=== PATIENT | female | born 1985 | race African-American/Black ===

== ENCOUNTER 2018-10-01 07:42 | Inpatient (IN) | payer BC ==
[2018-10-01] MEDS ORDERED: CITRIC ACID/SODIUM CITRATE 30 ML UNIT-DOSE CUP PO ONE (08:30)
[2018-10-01] MEDS ORDERED: ELECTROLYTE-148 SOLN 1,000 ML IV ONE (08:30)
[2018-10-01 08:32] VITALS: BMI 33.6
[2018-10-01] MEDS ORDERED: ELECTROLYTE-148 SOLN 1,000 ML IV SCH ×2 (08:45→09:00)
[2018-10-01] MEDS ORDERED: morphine SULFATE/Preservative Free 0.5 MG/ML (1cc Syringe) ONE (09:03)
[2018-10-01] MEDS ORDERED: BUPIVACAINE 0.75% IN DEXTROSE/PF 2ML AMPULE NR ONE (09:06)
--- NOTE | 2018-10-01 09:11 | HP ---
Past Medical History - Primary Care Physician PCP:: Cristhian Young - Admission Chief Complaint: 33yo P1 with at EGA 39w 1d admitted for repeat C/S. History of Present Illness: complicated by prior C/S. 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: Alzheimer's, CVA, Dementia, Migraine, Multiple Sclerosis, Peripheral Neuropathy, Parkinson's, Seizure, Syncope, TIA, Vertigo, Other Cardiovascular: No: AFIB, Aneurysm, Aortic Insufficiency, Aortic Stenosis, CAD, CHF, Deep Vein Thrombosis, HTN, Hyperlipdemia, VT, Mitral Insufficiency, Mitral Stenosis, Murmur, Pulmonary Hypertension, Other Pulmonary: No: Asthma, Bronchitis, Cancer, COPD, O2 Dependent, Pneumonia, Previously Intubated, Pulmonary Embolus, Pulmonary Fibrosis, Sleep Apnea, Other Gastrointestinal: No: Ascites, Cancer, Constipation, Crohn's Disease, Diverticulitis, Diverticulosis, Esophageal Varices, Gastritis, GERD, GI Bleed, Hemorrhoids, Hiatal Hernia, Inflamatory Bowel Disease, Irritable Bowel Disease, Pancreatitis, Peptic Ulcer Disease, Ulcerative Colitis, Other Hepatobiliary: No: Cirrhosis, Cholelithiasis, Cholecystitis, Choledocholithiasis , Hepatitis A, Hepatitis B, Hepatitis C, Other Renal/: No: Renal Failure, Renal Inusuff, BPH, Cancer, Hematuria, Hemodialysis , Neurogenic Bladder, Renal Calculi, UTI, Other Reproductive: No: Ectopic , Endometriosis, Fibroids, PID, Polycystic Ovary Syndrome, Postmenopausal, Other ...: 4 ...Para: 1 ...Term: 0 ...: 0 ...Spon : 2 ...Induced : 0 ...Multiple Gestation: 0 ...LMP: 12/07/17 ... Weeks Gestation by Dates: 39.1 ...EDC by Dates: 09/15/18 ...EDC by Sono: 10/07/18 Heme/Onc: No: Anemia, B12 Deficiency, Bleeding Disorder, Cancer, Current Chemotherapy, Current Radiation Therapy, Hemochromatosis, Hypercoaguable State, Myeloproliferative Synd, Sickle Cell Disease, Sickle Cell Trait, Thrombocytopenia, Other Infectious Disease: No: AIDS, C-Diff, Herpes Zoster, HIV, MRSA, STD's, Tuberculosis, VREF, Other Psych: No: Addictions, Anxiety, Bipolar, Depression, Panic, Psychosis, Schizophrenia, Other Musculoskeletal: No: Bursitis, Chronic low back pain, Hemiparesis, Hemiplegia, Osteoarthritis, Paraplegia, Other Rheumatology: No: Fibromyalgia, Gout, Lupus, Rheumatoid Arthritis, Sarcoidosis, Vasculitis, Other ENT: No: Allergic Rhinitis, Sinusitis, Other Endocrine: No: Rohith's Disease, Wily's Disease, Diabetes Insipidus, Diabetes Mellitus, Hyperparathyroidism, Hyperthyroidism, Hypothyroidism, Osteopenia, SIADH, Other Dermatology: No: Basal Cell, Cellulitis, Eczema, Melanoma, Psoriasis, Squamous Cell, Other - Past Surgical History Past Surgical History: Yes: Hx Myomectomy: No Hx Transabdominal Cerclage: No - Smoking History Smoking history: Never smoked Have you smoked in the past 12 months: No - Alcohol/Substance Use Hx Alcohol Use: No Home Medications - Allergies Allergies/Adverse Reactions: Allergies Allergy/AdvReac Type Severity Reaction Status Date / Time No Known Drug Allergies Allergy Verified 10/01/18 08:23 Family Disease History - Family Disease History Family Disease History: Diabetes: Grandparent (DM, prostate ca), CA: Grandparent Review of Systems - Review of Systems Constitutional: reports: No Symptoms Eyes: reports: No Symptoms HENT: reports: No Symptoms Neck: reports: No Symptoms Cardiovascular: reports: No Symptoms Respiratory: reports: No Symptoms Gastrointestinal: reports: No Symptoms Genitourinary: reports: No Symptoms Breasts: reports: No Symptoms Reported Musculoskeletal: reports: No Symptoms Integumentary: reports: No Symptoms Neurological: reports: No Symptoms Endocrine: reports: No Symptoms Hematology/Lymphatic: reports: No Symptoms Psychiatric: reports: No Symptoms Pain Intensity: 0 Physical Exam - Maternity Vital Signs: Vital Signs Temperature 98.3 F 10/01/18 07:42 Pulse Rate 93 H 10/01/18 07:42 Respiratory Rate 18 10/01/18 07:42 Blood Pressure 129/85 10/01/18 07:42 O2 Sat by Pulse Oximetry (%) Constitutional: Yes: Well Nourished, No Distress, Calm Eyes: Yes: WNL, Conjunctiva Clear HENT: Yes: WNL, Atraumatic, Normocephalic Neck: Yes: WNL, Supple, Trachea Midline Cardiovascular: Yes: WNL, Regular Rate and Rhythm Lungs: Clear to auscultation Breast(s): Yes: WNL - Abdominal Exam/OB Fundal Height: 39 Number of Fetuses: Single Presentation: Vertex Contractions: No Heart Rate (range): 140 Heart Rate Location: Midline Category: I Accelerations: Uniform Decelerations: None - Vaginal Exam/OB Vaginal Bleediing: No Speculum Exam: No Presentation: Vertex/Position - Physical Exam Musculoskeletal: Yes: WNL Extremities: Yes: WNL Edema: Yes Edema: LLE: Trace, RLE: Trace Integumentary: Yes: WNL Deep Tendon Reflex Grade: Normal +2 ...Motor Strength: WNL Psychiatric: Yes: WNL, Alert, Oriented Hemorrhage Risk Assessment - Risk Factors Medium Risk Factors: Yes: Prior , uterine surgery,or multiple laparotomies High Risk Factors: Yes: None Risk Score: 1 Risk Level: Medium Risk Imaging - Results Ultrasound: Report Reviewed Assessment/Plan 33yo P1 with at EGA 39w 1d admitted for repeat C/S. We discussed the risks and benefits of C/S at length, including but not limited to scarring, pain , bleeding, infection, injury to underlying organs and structures, need for additional surgery to repair/treat any problems or complications, complications/injuries, etc. The pt verbalized her understanding and requested to proceed with surgery. The pt is aware that all surgeries have risks and no guarantees can be provided.
[2018-10-01] MEDS ORDERED: ceFAZolin SODIUM 1 GM VIAL ONE (09:14)
[2018-10-01] MEDS ORDERED: PHENYLEPHRINE HCL 10 MG/1 ML SINGLE DOSE VIAL ONE (09:21)
[2018-10-01] MEDS ORDERED: OXYTOCIN 10 UNITS/ML VIAL ONE ×2 (09:33→10:16)
[2018-10-01] MEDS: OXYTOCIN 20 UNITS in 0.9% NS 20 UNIT/1,000 ML INFUS.BAG IV SCH ×3 (09:55→23:45)
[2018-10-01 10:30] LABS: ARTERIAL BLD GAS O2 SATURATION 8.4 % (90-98.9); ARTERIAL BLOOD GAS PCO2 66.3 mmHg (35-45); ARTERIAL BLOOD GAS PO2 11.2 mmHg (80-100); ARTERIAL BLOOD GAS pH 7.18 (7.35-7.45)
[2018-10-01 10:38] LABS: VENOUS PC02 55.1 mmHg (38-52); VENOUS PH 7.25 (7.32-7.42); VENOUS PO2 22.3 mmHg (28-48)
[2018-10-01] MEDS ORDERED: IBUPROFEN 800 MG/8 ML IJ IVPB PRN (10:51)
[2018-10-01] MEDS ORDERED: METHYLERGONOVINE MALEATE 0.2 MG/1 ML AMP IM PRN (10:51)
[2018-10-01] MEDS ORDERED: oxyCODONE HCL 5 MG TABLET PO PRN ×2 (10:51)
[2018-10-01] MEDS ORDERED: IBUPROFEN 800 MG/8 ML IJ IVPB ONE (12:15)
[2018-10-01] MEDS ORDERED: ONDANSETRON 4 MG/2 ML VIAL IVPUSH PRN (18:28)
[2018-10-01] MEDS: FERROUS SO4 325 MG TABLET (FP) PO SCH (21:18)
[2018-10-01] MEDS ORDERED: SENNOSIDES/DOCUSATE COMBO (SENNA PLUS) TABLET (UD) PO PRN (22:00)
[2018-10-02] MEDS: SIMETHICONE 80 MG TAB.CHEW (FP) PO PRN ×3 (06:17→22:19)
[2018-10-02] MEDS: IBUPROFEN 600 MG TABLET (FP) PO PRN ×3 (06:17→22:18)
[2018-10-02] MEDS: ACETAMINOPHEN 325 MG TABLET (FP) PO PRN ×3 (06:18→22:18)
[2018-10-02] MEDS: OXYTOCIN 20 UNITS in 0.9% NS 20 UNIT/1,000 ML INFUS.BAG IV SCH (06:20)
--- NOTE | 2018-10-02 07:04 | PN ---
Post Progress Note - Subjective Subjective: 33yo P2 no complains, no N/V, neg flatus Post Day: 1 Type of Delivery: Repeat C/S Vital Signs: Vital Signs Temperature 98.9 F 10/02/18 06:00 Pulse Rate 96 H 10/02/18 06:00 Respiratory Rate 18 10/02/18 06:00 Blood Pressure 128/83 10/02/18 06:00 O2 Sat by Pulse Oximetry (%) 100 10/01/18 12:00 Breast Exam: Yes: Soft Uterus: Yes: Fundus Firm, Fundus @ umbilicus, Non-tender Incision: Yes: Dressing dry and intact Abdomen/GI: Yes: Abdomen soft, Tolerating PO Lochia: Yes: Rubra Lochia, amount: Small Extremities: Yes: Calves non-tender Perineum: Yes: Intact Activity: Ambulating Assessment/Plan 33yo P 2 now s/p Repeat c/section VSS, Afebrile doing well d/c IV encourage ambulation Insentive Spirometer to bed side Female infant Blood type A pos no need for RhoGam cont routine PP care
[2018-10-02 07:07] LABS: BASO % 0.2 % (0-2.0); EOS % 0.1 % (0-4.5); HEMOGLOBIN 8.1 GM/dL (10.7-15.3); LYMPH % 10.8 % (8-40); MCH 26.7 pg (25.7-33.7); MCHC 32.4 g/dl (32.0-36.0); MEAN CELL VOLUME 82.6 fl (80-96); MEAN PLT VOLUME 8.7 fl (7.5-11.1); MONO % 6.5 % (3.8-10.2); NEUT % 82.4 % (42.8-82.8); PLATELET COUNT 139 K/MM3 (134-434); RBC 3.03 M/mm3 (3.60-5.2); RDW 14.1 % (11.6-15.6); WHITE BLOOD COUNT 9.1 K/mm3 (4.0-10.0)
[2018-10-02] MEDS ORDERED: TUBERCULIN PPD 5 TU/0.1ML SYRINGE (IN PATIENT USE ONLY) ID ONE (09:00)
[2018-10-02] MEDS: ENOXAPARIN NA (PORCINE) 30 MG/0.3 ML DISP.SYRIN SQ SCH (09:33)
[2018-10-02] MEDS: PRENATAL VITAMINS W/ FOLIC ACID TABLET (FP) PO SCH (10:02)
[2018-10-02] MEDS: FERROUS SO4 325 MG TABLET (FP) PO SCH ×2 (10:02→22:19)
[2018-10-02] MEDS ORDERED: BISACODYL 10 MG SUPP.RECT RC PRN (10:51)
--- NOTE | 2018-10-02 10:59 | PN ---
Progress Note (short form) - Note Progress Note: Anesthesia postop note 33 y/o F s/p spinal anesthesia/ duramorph for repeat section POD#1, vss, aaox3, pain well controlled, no complaints, ambulated earlier No anesthesia complications.
--- NOTE | 2018-10-02 20:47 | OP ---
Operative Note - Note: Operative Date: 10/01/18 Pre-Operative Diagnosis: at EGA 39w1d with prior C/S Operation: Repeat LT C/S Findings: 1. Multiple very dense adhesions b/w rectus muscles through fascia and to anterior uterine wall, extending from the low uterine segment to fundus. Absence of any surgical plane due to adhesions. Densely adherent omentum. Post-Operative Diagnosis: Same as Pre-op Surgeon: Cristhian Young Guideman: Oksana Ardon Anesthesiologist/[employer] EXPERIENCE STRATEGY: Adama Phillips Anesthesia: Spinal Specimens Removed: Placenta Estimated Blood Loss (mls): 1,000 Drains & Tubes with Location: Chapman cath Drains, Volume Out (mls): 200 Blood Volume Replaced (mls): 0 Fluid Volume Replaced (mls): 1,100 Operative Report Dictated: Yes
--- NOTE | 2018-10-02 20:48 | PN ---
Delivery - Delivery Section: Repeat, Low Flap Transverse Type of Anesthesia: Spinal Episiotomy/Laceration: None EBL (cc): 1,000 Delivery, Single - Stages of Labor Date of Delivery: 10/01/18 Time of Delivery: 09:54 Date Placenta Delivered: 10/01/18 Time Placenta Delivered: :55 Placenta: Yes: Manual Removal, Normal Configuration - Condition of Ribbon Winder/Bottle Assembler Present: Yes Name: Lili Christensen Gender: Male Weight: 3.345 kg Position: OA, OT Total Hours ROM (Hrs/Mins): 3 MINS - 1 Minute Total Score: 9 5 Minutes Total Score: 9 - Feeding Plan Initial Plan: Elected not to breastfeed exclusively throughout hospitalization Remarks - Remarks Remarks: Very dense adhesions.
[2018-10-03] MEDS: PRENATAL VITAMINS W/ FOLIC ACID TABLET (FP) PO SCH (09:45)
[2018-10-03] MEDS: ENOXAPARIN NA (PORCINE) 30 MG/0.3 ML DISP.SYRIN SQ SCH (09:45)
[2018-10-03] MEDS: FERROUS SO4 325 MG TABLET (FP) PO SCH ×2 (09:45→23:06)
[2018-10-03] MEDS: IBUPROFEN 600 MG TABLET (FP) PO PRN ×2 (11:22→23:07)
[2018-10-03] MEDS: ACETAMINOPHEN 325 MG TABLET (FP) PO PRN ×2 (11:24→23:07)
--- NOTE | 2018-10-03 14:41 | PN ---
Post Progress Note - Subjective Subjective: Patient without acute complaints. Reports tolerating oral intake without nausea or vomiting. Ambulating without dizziness. Denies fevers or chills. Pain well controlled with oral pain medication. Passing flatus, no BM. Post Day: 2 Type of Delivery: Repeat C/S Vital Signs: Vital Signs Temperature 98 F 10/03/18 08:17 Pulse Rate 97 H 10/03/18 08:17 Respiratory Rate 20 10/03/18 08:17 Blood Pressure 129/72 10/03/18 08:17 O2 Sat by Pulse Oximetry (%) 100 10/01/18 12:00 Breast Exam: Yes: Soft Uterus: Yes: Fundus Firm, Fundus below umbilicus, Non-tender Incision: Yes: Sutures intact Abdomen/GI: Yes: Abdomen soft, Passing flatus, Tolerating PO, Other (NABS) Lochia: Yes: Rubra Lochia, amount: Small Extremities: Yes: Calves non-tender Perineum: Yes: Intact Activity: Ambulating - Labs Labs: CBC WBC 9.1 K/mm3 (4.0-10.0) 10/02/18 06:30 RBC 3.03 M/mm3 (3.60-5.2) L 10/02/18 06:30 Hgb 8.1 GM/dL (10.7-15.3) L 10/02/18 06:30 Hct 25.0 % (32.4-45.2) L D 10/02/18 06:30 MCV 82.6 fl (80-96) 10/02/18 06:30 MCH 26.7 pg (25.7-33.7) 10/02/18 06:30 MCHC 32.4 g/dl (32.0-36.0) 10/02/18 06:30 RDW 14.1 % (11.6-15.6) 10/02/18 06:30 Plt Count 139 K/MM3 (134-434) 10/02/18 06:30 MPV 8.7 fl (7.5-11.1) 10/02/18 06:30 Absolute Neuts (auto) 7.5 K/mm3 (1.5-8.0) 10/02/18 06:30 Neutrophils % 82.4 % (42.8-82.8) 10/02/18 06:30 Lymphocytes % 10.8 % (8-40) D 10/02/18 06:30 Monocytes % 6.5 % (3.8-10.2) 10/02/18 06:30 Eosinophils % 0.1 % (0-4.5) D 10/02/18 06:30 Basophils % 0.2 % (0-2.0) 10/02/18 06:30 Nucleated RBC % 0 % (0-0) 10/02/18 06:30 Assessment/Plan 33yo P2 s/p repeat LT C/S, doing well stable, afebrile. The pt is asymptomatic for s/sxs of anemia. care instructions reviewed. Continue routine postop care. Ambulation encouraged.
--- NOTE | 2018-10-03 14:46 | DS ---
Physical Exam-WHEAT WASHER Vital Signs: Vital Signs Temperature 98 F 10/03/18 08:17 Pulse Rate 97 H 10/03/18 08:17 Respiratory Rate 20 10/03/18 08:17 Blood Pressure 129/72 10/03/18 08:17 O2 Sat by Pulse Oximetry (%) 100 10/01/18 12:00 Constitutional: Yes: Well Nourished, No Distress, Calm Eyes: Yes: WNL, Conjunctiva Clear, EOM Intact HENT: Yes: WNL, Atraumatic, Normocephalic Neck: Yes: WNL, Supple, Trachea Midline Cardiovascular: Yes: WNL, Regular Rate and Rhythm Respiratory: Yes: WNL, Regular, CTA Bilaterally Gastrointestinal: Yes: WNL, Normal Bowel Sounds, Soft ...Rectal Exam: Yes: Deferred Renal/: Yes: WNL Internal Exam Deferred: Yes ....Post : Yes: Uterus firm, Uterus non-tender, Slight lochia rubra Breast(s): Yes: WNL Musculoskeletal: Yes: WNL Extremities: Yes: WNL Edema: Yes Edema: LLE: Trace, RLE: Trace Integumentary: Yes: WNL Wound/Incision: Yes: Clean/Dry, Well Approximated, Sutures Intact, Steri Strips , Open to air Neurological: Yes: WNL, Alert, Oriented ...Motor Strength: WNL Psychiatric: Yes: WNL, Alert, Oriented Labs: CBC, BMP 10/02/18 06:30 Delivery - Delivery Section: Repeat, Low Flap Transverse Type of Anesthesia: Spinal Episiotomy/Laceration: None EBL (cc): 1,000 Delivery, Single - Stages of Labor Date of Delivery: 10/01/18 Time of Delivery: 09:54 Time Placenta Delivered: 09:55 Placenta: Yes: Manual Removal, Normal Configuration - Condition of Monument Installer/Steam Hand Present: Yes Name: Lili Christensen Gender: Male Weight: 3.345 kg Position: OA, OT Total Hours ROM (Hrs/Mins): 3 MINS - 1 Minute Total Score: 9 5 Minutes Total Score: 9 - Feeding Plan Initial Plan: Elected not to breastfeed exclusively throughout hospitalization Remarks - Remarks Remarks: Very dense adhesions. Discharge Summary Reason For Visit: REPEAT at 39w 1d, prior C/S, Anemia due to acute blood loss Procedures: Principal: Repeat LT C/S Hospital Course: Normal post op & recovery Condition: Good - Instructions Diet, Activity, Other Instructions: Physical activity Resume your normal everyday activity as tolerated no heavy lifting or exercise until seen by your surgeon. You may walk unlimited pierce of and climb stairs. You may resume driving the car when you feel safe and comfortable behind the wheel. No sexual activity as instructed. Wound care If you have a bandage, leave it on, and keep dry for 48-72 hours. After that time discard the outer bandage. If they are tapes on the skin under the out of bandage leave them in place. They will peel off in the next 7 to 10 days. Do Not Peel them off. You may shower the day after surgery. If there are tapes present on the skin, you may shower over them. Diet There are no dietary restrictions. Eat healthy, high-fiber foods. Drink 6 to 8 glasses of liquid each day. This will assist in keeping your bowels are regular. Pain management You may take Tylenol or acetaminophen or Ibuprofen (for example, Motrin, Advil etc.) from my pain prescription medication is ordered should be taken as prescribed for moderate to severe pain. Call MD for any of the following: Severe pain not relieved by medication Fever of 101 or higher Excessive bleeding or drainage on dressing Inability to urinate Referrals: Cristhian Young MD [Staff Physician] - Disposition: HOME - Home Medications Comprehensive Discharge Medication List: Ambulatory Orders Vitamin Tablet 1 tab PO DAILY 10/01/18
[2018-10-03] MEDS: SIMETHICONE 80 MG TAB.CHEW (FP) PO PRN (23:07)
[2018-10-04 07:37] LABS: BASO % 0.2 % (0-2.0); HEMOGLOBIN 7.1 GM/dL (10.7-15.3); LYMPH % 25.5 % (8-40); MCH 27.7 pg (25.7-33.7); MCHC 33.8 g/dl (32.0-36.0); MEAN CELL VOLUME 81.9 fl (80-96); MEAN PLT VOLUME 8.6 fl (7.5-11.1); MONO % 8.2 % (3.8-10.2); NEUT % 64.1 % (42.8-82.8); PLATELET COUNT 182 K/MM3 (134-434); RBC 2.57 M/mm3 (3.60-5.2); RDW 14.3 % (11.6-15.6); WHITE BLOOD COUNT 6.8 K/mm3 (4.0-10.0)
--- NOTE | 2018-10-04 07:59 | PN ---
Post Progress Note - Subjective Subjective: Patient without acute complaints. Reports tolerating oral intake without nausea or vomiting. Ambulating without dizziness. Denies fevers or chills. Pain well controlled with oral pain medication. without difficulty. Passing flatus. Post Day: 3 Type of Delivery: Repeat C/S Vital Signs: Vital Signs Temperature 98.4 F 10/03/18 21:02 Pulse Rate 96 H 10/03/18 21:02 Respiratory Rate 20 10/03/18 21:02 Blood Pressure 140/71 10/03/18 21:02 O2 Sat by Pulse Oximetry (%) 100 10/01/18 12:00 Breast Exam: Yes: Soft Uterus: Yes: Fundus Firm, Fundus below umbilicus Incision: Yes: Sutures intact Abdomen/GI: Yes: Abdomen soft, Tender (mild incisional), Passing flatus, Tolerating PO. No: Abdominal Distention Lochia: Yes: Serosa Lochia, amount: Small Extremities: Yes: Calves non-tender Activity: Ambulating - Labs Labs: CBC WBC 6.8 K/mm3 (4.0-10.0) 10/04/18 07:00 RBC 2.57 M/mm3 (3.60-5.2) L 10/04/18 07:00 Hgb 7.1 GM/dL (10.7-15.3) L 10/04/18 07:00 Hct 21.0 % (32.4-45.2) L D 10/04/18 07:00 MCV 81.9 fl (80-96) 10/04/18 07:00 MCH 27.7 pg (25.7-33.7) 10/04/18 07:00 MCHC 33.8 g/dl (32.0-36.0) 10/04/18 07:00 RDW 14.3 % (11.6-15.6) 10/04/18 07:00 Plt Count 182 K/MM3 (134-434) D 10/04/18 07:00 MPV 8.6 fl (7.5-11.1) 10/04/18 07:00 Absolute Neuts (auto) 4.4 K/mm3 (1.5-8.0) 10/04/18 07:00 Neutrophils % 64.1 % (42.8-82.8) D 10/04/18 07:00 Lymphocytes % 25.5 % (8-40) D 10/04/18 07:00 Monocytes % 8.2 % (3.8-10.2) 10/04/18 07:00 Eosinophils % 2.0 % (0-4.5) D 10/04/18 07:00 Basophils % 0.2 % (0-2.0) 10/04/18 07:00 Nucleated RBC % 0 % (0-0) 10/04/18 07:00 Assessment/Plan 33 yo POD # 3 s/p repeat CD, afebrile, asymptomatic anemia, doing well 1. Patient stable for discharge home today. 2. Patient encouraged to contact MD for: - Severe pain not controlled by oral pain medication - Fevers or chills - Nausea or vomiting, intolerance of oral intake - Incision redness, tenderness or discharge 3. Patient to follow up in office in 1-2 weeks for incision check, 4-6 weeks for visit
[2018-10-04] MEDS: ACETAMINOPHEN 325 MG TABLET (FP) PO PRN (10:07)
[2018-10-04] MEDS: PRENATAL VITAMINS W/ FOLIC ACID TABLET (FP) PO SCH (10:07)
[2018-10-04] MEDS: FERROUS SO4 325 MG TABLET (FP) PO SCH (10:07)
[2018-10-04] MEDS: IBUPROFEN 600 MG TABLET (FP) PO PRN (10:08)
[2018-10-04] MEDS: SIMETHICONE 80 MG TAB.CHEW (FP) PO PRN (10:08)
[2018-10-04] MEDS: ENOXAPARIN NA (PORCINE) 30 MG/0.3 ML DISP.SYRIN SQ SCH (10:09)
[2018-10-04 14:01] VITALS: BP 118/72; PULSE 88; TEMP 98.3
--- NOTE | 2018-10-10 18:41 | PATH ---
Surgical Pathology Report Patient Name: PRINCE ROBERSON [facility]. Rec. #: [id number] /Age/Gender: 1985 (Age: 33) / F Account: [id number] Location: [facility] OBS/PLASTER MECHANIC Taken: 10/01/2018 Received: 10/02/2018 Reported: 10/10/2018 Physicians: Cristhian Young M.D. Specimen(s) Received PLACENTA Clinical History 40 weeks gestation, previous x1 Final Diagnosis PLACENTA, SECTION: 505 G THIRD TRIMESTER PLACENTA WITH TRIVASCULAR UMBILICAL CORD, MILD ACUTE CHORIOAMNIONITIS, AND UMBILICAL CORD WITH FOCAL MILD ACUTE PHLEBITIS. Electronically Signed Jennifer Cabral M.D. Gross Description The specimen is received fresh labeled placenta and is a 505 gram, 19.5 x 13.5 x 2.7 cm. placenta with attached membranes and umbilical cord. The attached membranes are ferrer, translucent with focal opacities and insert marginally. The umbilical cord measures 8 cm. in length and averages 1.0 cm. in diameter. The cord inserts eccentrically, 2.5 cm. to the nearest margin. No true knots or strictures are identified. Cut surface of the umbilical cord reveals 3 vessels. The surface is calderon blue with abundant fibrin deposition and appropriate caliber vessels. The maternal surface is red-brown with focal defects. Sectioning reveals red-brown, spongy parenchyma. No lesions are identified. [employer] sections are submitted in three cassettes as follows: 1- membrane rolls and umbilical cord; 2-3- full thickness sections of placenta. /10/09/2018 [facility]10/09/2018
--- NOTE | 2018-10-17 08:56 | OP ---
DATE OF OPERATION: 10/01/2018 PREOPERATIVE DIAGNOSIS: at estimated gestational age of 39 weeks and 1 day. Previous section. POSTOPERATIVE DIAGNOSIS: at estimated gestational age of 39 weeks and 1 day. Previous section. PROCEDURE: Repeat low transverse section via Pfannenstiel skin incision. SURGEON: Cristhian Young MD PHOTOGRAPHY COORDINATOR: Oksana Ardon MD ANESTHESIOLOGIST: Adama Phillips MD ANESTHESIA: Spinal. COMPLICATIONS: None. ESTIMATED BLOOD LOSS: 1000 mL. URINE OUTPUT: 200 mL of clear urine at the end of the procedure. INTRAVENOUS FLUIDS: 1100 mL. FINDINGS: Multiple very dense adhesions were noted between the uterus, anterior abdominal wall, and the rectus muscles through the fascia. The adhesions were extending from the lower uterine segment all the way up to the fundus. Absence of any surgical plane was noted due to adhesions. Densely adherent omentum was also observed. A live baby boy was delivered from vertex presentation, Apgars 9 and 9. Baby's weight 3345 g. DESCRIPTION OF PROCEDURE: The patient was met preoperatively. Risks, benefits, and alternatives of surgery were discussed in detail. All questions were answered. The patient was brought to the OR with the IV running. She was placed on a surgical table in the sitting position. The spinal anesthesia was achieved without difficulty. The patient was then placed in a supine position with a leftward tilt. She was prepped and draped in the usual sterile fashion. A Chapman catheter was left to drain to gravity. A timeout procedure was conducted as per standard protocol. The surgeons then proceeded with the operation. A Pfannenstiel skin incision was made with the knife along the prior scar. The incision was carried down to the level of fascia. The fascia was incised in the midline, and the incision was extended bilaterally using Ceja scissors. The fascia was then dissected away from the underlying rectus muscles superiorly and inferiorly. Dense adhesions were noted between the fascia, rectus muscle, and through the entire anterior abdominal wall. The rectus muscles were carefully in the midline using sharp dissection. There was no peritoneum identified, and it was observed that the uterus was densely adherent to the anterior abdominal wall. The dissection was performed carefully towards the lower uterine segment. The bladder was identified; however, the decision was made not to proceed with a bladder dissection. The dissection was then taken caudally as well as cephalad to free up the surgical space for delivery of the fetus. The cephalad dissection encountered dense adhesions between the uterus and omentum as well as the anterior abdominal wall. There were no surgical planes. Once the dissection was completed, a transverse incision was made in the lower uterine segment. The incision was extended bilaterally using bandage scissors. The baby was delivered from vertex presentation without complications. The baby was crying spontaneously. The umbilical cord was clamped and cut. The baby was handed to the waiting cdl flatbed truck driver. The placenta was delivered manually and without complications. The uterus was exteriorized and cleared of all clots and debris using laparotomy laps. The uterine incision was repaired using a 0 Biosyn suture in the running and locking stitch. Good hemostasis was noted. The uterine incision was imbricated using a secondary layer of closure with a 0 Biosyn suture. The uterus was noted to be well contracted. Normal fallopian tubes and ovaries were observed. The uterus was then replaced back into the abdominal cavity. The operative site was irrigated using copious of normal saline. Once the saline was aspirated, good hemostasis was noted. The fascia was closed using a 0 Vicryl suture with good approximation and hemostasis. The subcutaneous adipose tissues were approximated using several interrupted 2-0 chromic sutures. The skin was closed with a 3-0 Vicryl suture in a subcutaneous stitch. Sponge, lap, and needle counts were correct. The patient tolerated the procedure well and was transferred to recovery room in stable condition. Nora [id number]
== END 2018-10-04 12:40 | disposition home or self-care (01) | DRG 788 ==
LOC: JLDR 07:42 → J3W 12:40
PROVIDERS: ADMIT Obstetrics & Gynecology; ATTEND Obstetrics & Gynecology
PROC: 10D00Z1 Extraction of Products of Conception, Low, Open Approach (ICD-10-PCS; principal; 2018-10-02)
DX: O34.211 Maternal care for low transverse scar from previous cesarean delivery (principal); O99.824 Streptococcus B carrier state complicating childbirth; N99.4 Postprocedural pelvic peritoneal adhesions; Z3A.39 39 weeks gestation of pregnancy; Z37.0 Single live birth
CPT/HCPCS: 36415; 36600; 82803; 85025; 88307-TC